=== PATIENT | male | born 2000 | race Caucasian/White ===

== ENCOUNTER 2020-11-12 17:12 | Emergency (ER) | payer OTHER ==
[~2020-11-12] VITALS: Ht 157.5 cm; Wt 47.6 kg
[2020-11-12] MEDS ORDERED: NORCO 10-325 T1 EACH PO (18:53)
[2020-11-12] MEDS ORDERED: KEFLEX500 M1 PO (18:54)
[2020-11-12 18:55] VITALS: BP 161/95
== END 2020-11-12 18:55 | disposition home or self-care (01) ==
LOC: ER 17:12
DX: S61.211A Laceration without foreign body of left index finger without damage to nail, initial encounter (principal); S61.012A Laceration without foreign body of left thumb without damage to nail, initial encounter; W27.0XXA Contact with workbench tool, initial encounter; Y93.89 Activity, other specified; Y92.89 Other specified places as the place of occurrence of the external cause; Y99.8 Other external cause status